=== PATIENT | female | born 1950 | race Two or more races ===

== ENCOUNTER 2024-07-21 16:40 | Emergency (ER) | payer MEDICARE, MEDICAID, SELFPAY ==
[2024-07-21 17:20] VITALS: BP 162/78; PULSE 88; RESP 18; TEMP 37.2; O2SAT 95; BMI 25.7
--- NOTE | 2024-07-21 17:21 | PD.EDRME ---
Rapid Medical Screening Exam E Arrival date/time: 07/21/24 16:40 74-year-old female with a history of hyperlipidemia, type 2 diabetes presents to the emergency room with a chief complaint of a rash to her abdomen to her back and to the bilateral groin area x 5 days. I have greeted and performed a focused initial assessment of this patient. A comprehensive ED assessment and evaluation of the patient, analysis of all test results, and completion of the medical decision making process will be conducted by additional ED providers. Chief Complaint: Skin/Abscess/Foreign Body Time Seen by Provider: 07/21/24 17:18 Vital signs: Vital Signs Temperature 99 F 07/21/24 17:20 Pulse Rate 88 07/21/24 17:20 Respiratory Rate 18 07/21/24 17:20 Blood Pressure 162/78 H 07/21/24 17:20 Pulse Oximetry (%) 95 07/21/24 17:20 Oxygen Delivery Method Room Air 07/21/24 17:20 Vital signs reviewed by provider: Yes
[2024-07-21] MEDS: FAMOTIDINE 20 MG TABLET PO (18:23)
[2024-07-21] MEDS: DiphenhydrAMINE ELIX 25 MG/10 ML UDC PO (18:23)
[2024-07-21] MEDS: dexAMETHasone 4 MG TABLET 10 MG PO (18:23)
--- NOTE | 2024-07-21 19:57 | PD.EDSKIN ---
ED Skin Abcess FB-RME/HPI General Chief complaint: Skin/Abscess/Foreign Body Stated complaint: RASH/ITCHING Time Seen by Provider: 07/21/24 17:18 Arrival date/time: 07/21/24 16:40 RME / HPI RME / HPI narrative: 07/21/24 16:40 74-year-old female with a history of hyperlipidemia, type 2 diabetes presents to the emergency room with a chief complaint of a rash to her abdomen to her back and to the bilateral groin area x 5 days. I have greeted and performed a focused initial assessment of this patient. A comprehensive ED assessment and evaluation of the patient, analysis of all test results, and completion of the medical decision making process will be conducted by additional ED providers. ------ This section includes all my notes and documentations, including HPI, PE, and ED course. Lonny Gómez MD HPI: 74yo female presents to the ED for a chief complaint of an itchy rash x 5 days. Patient states she's had a rash to her lower abdomen, right hand, right forehead, and buttocks for the last 5 days. She states it was itching persistently today and was unable to tolerate it, so she came in for evaluation. She denies any fever, chills or any other associated symptoms. No other complaints reported. ROS: All negative except as documented in HPI. Physical Exam: General: Alert and oriented. No acute distress when remaining still. Eyes: Conjunctivae and lids clear. ENT: No nasal congestion. Neck: Supple. Heart: RRR. Lungs: No respiratory distress. Good air movement. No rhonchi, wheezing, rales. Abdomen: Soft and nontender. Normal bowel sounds. No distension. No rebound or guarding. Skin: Warm and dry. Scattered maculopapular rash, some in clusters, that vary in different sizes and shapes. Neuro: Alert and oriented X 3. At this point, diagnoses include skin infection, most likely scabies. Treatment here included Decadron, Benadryl, and Famotidine. Recommended outpatient treatment. Based on my best medical judgment, made decision no further evaluation or treatment indicated at this time. Patient understands and agrees to the discharge instructions customized and printed, see below. Discharge instructions from Dr. Gómez: --After evaluation, you have a skin infection. --Take ivermectin as prescribed. Four 3 mg pills today and repeat in 7 days. --And massage permethrin cream from head to toe and wash after 10-12 hours. And repeat in 14 days. --Prednisone for 5 days to help decrease inflammation. Will help your itching. --Benadryl 25 mg or 50 mg every 8 hours as needed for itching. --Despite severe itching, avoid scratching. Because this worsens the itching and damages the skin which can cause bacterial infections. Apply cold compress and triamcinolone cream instead. --See a private doctor in one week if not completely better. You may need more care not available here in the ER. Such as skin biopsy and referrals to see specialists. --Wash all clothing and linen and towels at home in hot water and dry in high heat. Everything you cannot wash, set aside in garbage bags for 2 weeks. --Seek immediate medical care with difficulty breathing or with any concerns. Lonny Gómez MD Related Data Home Medications ?Medication ?Instructions ?Recorded ?Confirmed lovastatin 20 mg tablet 20 mg PO HS #0 tabs 09/19/14 metformin 500 mg tablet 500 mg PO BIDAC #0 tabs 09/19/14 (Glucophage) omeprazole 20 mg capsule,delayed 20 mg PO QDAY ##0 09/19/14 release (Prilosec) Previous Rx's ?Medication ?Instructions ?Recorded Hydrocodone/Acetaminophen * (NORCO 1 tab PO Q6H PRN pain #15 tabs 09/24/15 5/325 *) naproxen 500 mg tablet (Naprosyn) 500 mg PO BID #30 tabs 01/05/19 meclizine 25 mg tablet 25 mg PO BID PRN dizziness #20 tabs 10/11/21 meloxicam 7.5 mg tablet 7.5 mg PO QDAY #20 tabs 01/05/23 ivermectin 3 mg tablet 12 mg (4 x 3 mg) PO QWEEK 2 doses 07/21/24 #8 tabs permethrin 5 % topical cream 1 applic topical Q14D 2 doses #120 07/21/24 grams prednisone 20 mg tablet 20 mg PO BID 5 days #10 tabs 07/21/24 triamcinolone acetonide 0.1 % 1 applic topical TID PRN itching 07/21/24 topical cream #80 grams Allergies Allergy/AdvReac Type Severity Reaction Status Date / Time No Known Allergies Allergy Verified 07/21/24 16:44 Review of Systems Review of Systems Systems Reviewed: All systems reviewed, normal except as documented Past Medical History Past Medical History CARDIAC: Negative Congestive Heart Failure RESPIRATORY: Negative Chronic Obstructive Pulmonary Disease (COPD) GENITOURINARY: Negative Renal Disease ENDOCRINE: Negative Diabetes Mellitus Type 1 or Diabetes Mellitus Type 2 Social History SMOKING STATUS: Never smoker ED Exam Narrative Physical exam: As noted in HPI. Course Quality Measures none Orders Category Date Time Status DiphenhydrAMINE [Benadryl] Med 07/21/24 17:21 Discontinued 25 mg PO X1 ONE Famotidine [Pepcid] Med 07/21/24 17:21 Discontinued 20 mg PO X1 ONE dexAMETHasone TAB [Decadron Tab] Med 07/21/24 17:21 Discontinued 10 mg PO X1 ONE Vital Signs Vital signs: Vital Signs Temperature 99 F 07/21/24 17:20 Pulse Rate 88 07/21/24 17:20 Respiratory Rate 18 07/21/24 17:20 Blood Pressure 162/78 H 07/21/24 17:20 Pulse Oximetry (%) 95 07/21/24 17:20 Oxygen Delivery Method Room Air 07/21/24 17:20 Skin / Abscess / Foreign Body MDM Narrative MDM Narrative:: Scribe Attestation: 07/21/24 Nkechi Antonio am scribing for and in the presence of Dr. Gómez. Patient data External records reviewed:: [facility] previous records (Per chart review, patient has no relevant previous ED visits or admissions to this facility.) Clinical information provided by:: patient Social determinants that could affect healthcare access:: none Patient has the following chronic illnesses:: DM, HLD How is presenting disease/condition affected by chronic disease/condition?: uneffected by Evaluation data The following diagnostics were reviewed and interpreted by me:: other (specify) (none) Lab and/or radiology exams considered but not ordered:: none Interpretation Summary: none Medications / Prescriptions Medications or Prescriptions considered but not ordered:: none Medication administrations:: Medication Administration History Discontinued Medications Dexamethasone (Dexamethasone 4 Mg Tablet) 10 mg PO X1 ONE Stop: 07/21/24 17:22 Last Admin: 07/21/24 18:23 Dose: 10 mg Documented By: Diphenhydramine HCl (Diphenhydramine Elix 25 Mg/10 Ml [facility] [place]) 25 mg PO X1 ONE Stop: 07/21/24 17:22 Last Admin: 07/21/24 18:23 Dose: 25 mg Documented By: RONALDO Famotidine (Famotidine 20 Mg Tablet) 20 mg PO X1 ONE Stop: 07/21/24 17:22 Last Admin: 07/21/24 18:23 Dose: 20 mg Documented By: Javi Burkett Famotidine Consultations Consultation(s) initiated? (list below): No Diagnosis Skin/Abscess Differential Diagnosis: abscess of skin or subcutaneous tissue, viral exanthem, dermatophytosis, urticaria, herpes zoster, allergic reaction to drug, cellulitis, eczema, insect bites, impetigo and contact dermatitis Most likely diagnosis given after review of the tests above:: Skin infection, most likely scabies. Admission Indicated Admission indicated?: not indicated Explain why admission is indicated or not indicated:: No criteria for admission. Admission Request Was there a request for admission?: No Disposition Plan Disposition Plan: Discharge Discharge Attestation Discharge Attestation: The patient and all family members were given an opportunity to ask questions and understood the discharge instructions. Discharge instructions specifically effects, indications for sooner follow up or return to the emergency department, and the expected course of current diagnosis. Patient condition: Stable Discharge Plan Plan Patient Disposition: HOME (Self Care) Prescriptions/Referrals Prescriptions/Med Rec: New permethrin 5 % cream 1 applic topical Q14D Qty: 120 0RF Rx Instructions: Massage from head to toes and wash off in 12 hours. Repeat in 14 days. ivermectin 3 mg tablet 12 mg PO QWEEK Qty: 8 0RF triamcinolone acetonide 0.1 % cream 1 applic topical TID PRN (Reason: itching) Qty: 80 1RF prednisone 20 mg tablet 20 mg PO BID 5 Days Qty: 10 0RF Taper: Prednisone Taper 20 mg DAILY for 2 Days and 0 Hour 10 mg DAILY for 2 Days and 0 Hour 5 mg DAILY for 7 Days and 0 Hour No Action metformin [Glucophage] 500 MG tablet 500 mg PO BIDAC Qty: 0 omeprazole [Prilosec] 20 MG capsule,delayed release(DR/EC) 20 mg PO QDAY Qty: 0 Patient Comments: TO SUPPRESS GASTRIC ACID SECRETIONS lovastatin 20 MG tablet 20 mg PO HS Qty: 0 Hydrocodone/Acetaminophen * (NORCO 5/325 *) 1 TAB tablet 1 tab PO Q6H PRN (Reason: pain) Qty: 15 0RF naproxen [Naprosyn] 500 mg tablet 500 mg PO BID Qty: 30 0RF meclizine 25 mg tablet 25 mg PO BID PRN (Reason: dizziness) Qty: 20 0RF meloxicam 7.5 mg tablet 7.5 mg PO QDAY Qty: 20 0RF Referrals: Herman (PCP)Yobany MD [Primary Care Provider] - In 1 week Problem List Clinical Impression: Skin infection Patient/Caregiver Discharge Instructions Discharge Activity: activity as tolerated Education Materials: ED Scabies Additional Instructions: Discharge instructions from Dr. Gómez: --After evaluation, you have a skin infection. --Take ivermectin as prescribed. Four 3 mg pills today and repeat in 7 days.? --And massage permethrin cream from head to toe and wash after 10-12 hours.? And repeat in 14 days. --Prednisone for 5 days to help decrease inflammation. Will help your itching. --Benadryl 25 mg or 50 mg every 8 hours as needed for itching.? --Despite severe itching, avoid scratching.? Because this worsens the itching and damages the skin which can cause bacterial infections.? Apply cold compress and triamcinolone cream instead. --See a private doctor in one week if not completely better. You may need more care not available here in the ER.? Such as skin biopsy and referrals to see specialists. --Wash all clothing and linen and towels at home in hot water and dry in high heat.? Everything you cannot wash, set aside in garbage bags for 2 weeks. --Seek immediate medical care with difficulty breathing or with any concerns.? Instrucciones de bettina del Dr. Gómez: --Despu?s de la evaluaci?n, tiene katerina infecci?n cut?constantino. --[place] ivermectina seg?n lo prescrito. Cuatro pastillas de 3 mg hoy y repita en 7 d?as. --[place] la crema de permetrina de pies a theodora y lave despu?s de 10 a 12 horas. Repita en 14 d?as. --Prednisona shane 5 d?as para ayudar a disminuir la inflamaci?n. Aliviar? la picaz?n. --Benadryl 25 mg o 50 mg cada 8 horas, seg?n sea necesario para la picaz?n. --A pesar de la picaz?n intensa, evite rascarse. [place] empeora la picaz?n y da?a la piel, lo que puede causar infecciones bacterianas. Aplique compresas fr?as y crema de triamcinolona en medel lugar. --Consulte con un m?dico privado en katerina semana si no mejora por completo. Es posible que necesite atenci?n adicional que no est? disponible en urgencias, jose katerina biopsia de piel y derivaciones a especialistas. --Lave toda la ropa, la ropa de cama y las toallas en casa con [place] y s?quelas a temperatura bettina. Todo lo que no pueda lavarse, gu?rdelo en bolsas de basura shane dos semanas. --Busque atenci?n m?dica inmediata si tiene dificultad para respirar o cualquier inquietud. Print Language: Kitt[place] Stand Alone Forms: Gala Award Info., Patient Portal Info Letter
== END 2024-07-21 20:42 | disposition home or self-care (01) ==
PROVIDERS: Emergency Provider Emergency Medicine; PCP Family Medicine
DX: L08.9 Local infection of the skin and subcutaneous tissue, unspecified (principal)
CPT/HCPCS: 99282; J8540; A9270